=== PATIENT | male | born 1955 | race Caucasian/White ===

== ENCOUNTER 2018-01-07 11:34 | Observation (INO) | payer MEDICARE, OTHER ==
[2018-01-07] VITALS (7 sets, daily range): BP systolic 109–148; BP diastolic 56–83; PULSE 72–89; RESP 17–20; TEMP 97.8–98.8; O2SAT 94–98
[~2018-01-07] VITALS: Ht 182.9 cm; Wt 80.0 kg
[~2018-01-07 11:34] MED LIST: ASPI81 PO; BUPR150T3 PO; GLUC250C5 PO; LEXA20TA PO; LORA-392 PO; TAB-TAB PO; TAMS0.4C67 PO; VITA100017 PO
[2018-01-07] MEDS ORDERED: SODIUM CHLOR 0.9% 1000 ML INJ 1,000 ML IV ONE (12:15)
[2018-01-07] MEDS ORDERED: ONDANSETRON HCL 4 MG/2 ML VIAL IV PUSH ONE (12:15)
[2018-01-07] MEDS ORDERED: ASPIRIN 325 MG TAB PO ONE (12:15)
[2018-01-07] MEDS ORDERED: ONDANSETRON HCL 4 MG/2 ML VIAL ONE (12:15)
[2018-01-07 12:52] LABS: AUTOMATED NEUTROPHIL # 9.8 TH/MM3 (1.8-7.7); BASOPHIL % 0.3 % (0.0-2.0); EOSINOPHIL # 0.1 TH/MM3 (0-0.4); EOSINOPHIL % 0.7 % (0.0-4.0); HEMATOCRIT 42.5 % (39.0-51.0); HEMOGLOBIN 14.2 GM/DL (13.0-17.0); LYMPH % 8.5 % (9.0-44.0); MEAN CELL VOLUME 85.8 FL (80.0-100.0); MEAN CORPUSCULAR HEMOGLOBIN 28.7 PG (27.0-34.0); MEAN CORPUSCULAR HGB CONC 33.4 % (32.0-36.0); MEAN PLATELET VOLUME 9.2 FL (7.0-11.0); MONO % 8.5 % (0.0-8.0); PLATELET COUNT 224 TH/MM3 (150-450); RED BLOOD COUNT 4.96 MIL/MM3 (4.50-5.90); RED CELL DISTRIBUTION WIDTH 13.1 % (11.6-17.2); WHITE BLOOD COUNT 11.9 TH/MM3 (4.0-11.0)
--- NOTE | 2018-01-07 12:53 | RADRPT ---
EXAM DATE/TIME: 01/07/2018 12:32 [facility] COMPARISON: No previous studies available for comparison. INDICATIONS : Vertigo, weakness, heaviness in chest, felt hot all over MEDICAL HISTORY : Chronic obstructive pulmonary disease. heart murmur SURGICAL HISTORY : None. ENCOUNTER: Initial ACUITY: 1 day PAIN SCORE: 0/10 LOCATION: Bilateral chest FINDINGS: A single view of the chest demonstrates the lungs to be symmetrically aerated without evidence of mas s, infiltrate or effusion. The cardiomediastinal contours are unremarkable. Osseous structures are intact. CONCLUSION: 1. No acute cardiopulmonary findings identified. Nito Meza MD on January 07, 2018 at 12:50 Board Certified Radiologist. This report was verified electronically.
[2018-01-07] MEDS ORDERED: TAMS5CAP PO (12:57)
[2018-01-07] MEDS ORDERED: ASPI-516 CHEW (12:57)
[2018-01-07] MEDS ORDERED: LORA-392 PO (12:57)
[2018-01-07] MEDS ORDERED: LEXA20TA PO (12:57)
[2018-01-07] MEDS ORDERED: BUPR150CR PO (12:57)
--- NOTE | 2018-01-07 13:06 | RADRPT ---
EXAM DATE/TIME: 01/07/2018 12:53 [facility] COMPARISON: No previous studies available for comparison. INDICATIONS : Syncope today. RADIATION DOSE: 56.35 CTDIvol (mGy) MEDICAL HISTORY : None SURGICAL HISTORY : None. ENCOUNTER: Initial ACUITY: 1 day PAIN SCALE: 0/10 LOCATION: cranial TECHNIQUE: Multiple contiguous axial images were obtained of the head. Using automated exposure control and adj ustment of the mA and/or kV according to patient size, radiation dose was kept as low as reasonably a chievable to obtain optimal diagnostic quality images. DICOM format image data is available electro nically for review and comparison. FINDINGS: CEREBRUM: The ventricles are normal for age. No evidence of midline shift, mass lesion, hemorrhage or acute in farction. No extra-axial fluid collections are seen. POSTERIOR FOSSA: The cerebellum and brainstem are intact. The 4th ventricle is midline. The cerebellopontine angle i s unremarkable. EXTRACRANIAL: The visualized portion of the orbits is intact. SKULL: The calvaria is intact. No evidence of skull fracture. CONCLUSION: 1. No acute findings in the brain. Elfego Luz MD on January 07, 2018 at 13:04 Board Certified Radiologist. This report was verified electronically.
[2018-01-07 13:07] LABS: ALBUMIN 3.9 GM/DL (3.4-5.0); ALT (GPT) 22 U/L (12-78); AST (GOT) 16 U/L (15-37); BICARBONATE 28.5 MEQ/L (21.0-32.0); BLOOD UREA NITROGEN 10 MG/DL (7-18); CALCIUM 8.6 MG/DL (8.5-10.1); CHLORIDE 100 MEQ/L (98-107); CREATININE 1.02 MG/DL (0.60-1.30); GLOMERULAR FILTRATION RATE 74 ML/MIN (>89); GLUCOSE,RANDOM 101 MG/DL (74-106); SODIUM (NA) 135 MEQ/L (136-145)
[2018-01-07 13:17] LABS: ALKALINE PHOSPHATASE 40 U/L (45-117); DIRECT BILIRUBIN ADULT 0.1 MG/DL (0.0-0.2); TOTAL BILIRUBIN ADULT 0.7 MG/DL (0.2-1.0); TROPONIN I LESS THAN 0.02 NG/ML (0.02-0.05)
--- NOTE | 2018-01-07 13:41 | PD ---
HPI Chief Complaint: Chest Pain Time Seen by Provider: 12:02 Travel History International Travel<30 days: No Contact w/Intl Traveler<30days: No Traveled to known affect area: No History of Present Illness HPI 62-year-old male that presents to the ED for evaluation of chest pressure and dizziness. Per patient he was working on his garage for about a couple of hours with the findings on as well as keep hydrated and also started feeling like she was given a passout. There had this before. He states that he had some chest pressure but he wasn't sure if it was chest pain. He states that he has of shortness of breath as well. Per patient yesterday get admitted. He was given a passout. He never actually lost consciousness. His recommended that he comes here so he came here. He states that he drinks plenty of water. He denies any the hydration problems. He states that he still feels nauseous and was throwing up evaluated him. Positive abdominal pain. No diarrhea or bowel movement issues. No chest pain at this time but states that he did have the chest pressure. He denies any history of ACS or CVA. History of hypertension. No pain at this time. Per patient the pain was 3 out of 10. PFSH Past Medical History Anxiety: Yes Depression: Yes Past Surgical History Eye Surgery: Yes (BOTH EYES ) Other Surgery: Yes (NECK SURGERY) Social History Alcohol Use: Yes (BEER ONCE AND AWHILE- LAST DRANK 11/08/07) Tobacco Use: No Substance Use: No (Socially - 3-5 beers 1-2 times a week usually.) Allergies-Medications (Allergen,Severity, Reaction): Coded Allergies: No Known Allergies (Verified , 05/05/14) Reported Meds & Prescriptions Reported Meds & Active Scripts Active Reported Aspirin 81 Mg Chew 81 Mg CHEW DAILY Flomax (Tamsulosin HCl) 0.4 Mg Cap 0.4 Mg PO HS Ativan (Lorazepam) 0.5 Mg Tab 0.5 Mg PO Q6H PRN Wellbutrin SR 12 HR (Bupropion HCl) 150 Mg Tab 150 Mg PO Q12HR Lexapro (Escitalopram Oxalate) 20 Mg Tab 20 Mg PO DAILY Review of Systems Except as stated in HPI: all other systems reviewed are Neg Physical Exam Narrative GENERAL: SKIN: Warm and dry. HEAD: Atraumatic. Normocephalic. EYES: Pupils equal and round. No scleral icterus. No injection or drainage. ENT: No nasal bleeding or discharge. Mucous membranes pink and moist. Tongue is midline. No uvula deviation. NECK: Trachea midline. No JVD. CARDIOVASCULAR: Regular rate and rhythm. No murmurs, S3, S4. RESPIRATORY: No accessory muscle use. Clear to auscultation. Breath sounds equal bilaterally. GASTROINTESTINAL: Abdomen soft, non-tender, nondistended. Hepatic and splenic margins not palpable. MUSCULOSKELETAL: Extremities without clubbing, cyanosis, or edema. No obvious deformities. Full range of motion of the upper and lower extremities bilaterally. 2+ pulses bilaterally. NEUROLOGICAL: Awake and alert. No obvious cranial nerve deficits. Motor grossly within normal limits. Five out of 5 muscle strength in the arms and legs. Normal speech. PSYCHIATRIC: Appropriate mood and affect; insight and judgment normal. Data Data Last Documented VS Vital Signs Date Time Temp Pulse Resp B/P (MAP) Pulse Ox O2 Delivery O2 Flow Rate FiO2 01/07/18 13:28 78 18 123/83 (96) 83 18 146/80 (102) 84 18 140/83 (102) 01/07/18 12:21 98 Room Air 01/07/18 11:35 97.8 Orders Orders Electrocardiogram (01/07/18 11:46) Complete Blood Count With Diff (01/07/18 11:46) Ckmb (Isoenzyme) Profile (01/07/18 11:46) Troponin I (01/07/18 11:46) Chest, Single Ap (01/07/18 11:46) Iv Access Insert/Monitor (01/07/18 11:46) Ecg Monitoring (01/07/18 11:46) Oxygen Administration (01/07/18 11:46) Oximetry (01/07/18 11:46) Ct Brain W/O Iv Contrast(Rout) (01/07/18 ) Sodium Chlor 0.9% 1000 Ml Inj (Ns 1000 M (01/07/18 12:15) Aspirin (Aspirin) (01/07/18 12:15) Ondansetron Inj (Zofran Inj) (01/07/18 12:15) Ondansetron Inj (Zofran Inj) (01/07/18 12:15) Comprehensive Metabolic Panel (01/07/18 11:46) Direct Bilirubin (01/07/18 11:46) Thyroid Stimulating Hormone (01/07/18 11:46) Orthostatic Vital Signs (01/07/18 13:27) Admit Order (Ed Use Only) (01/07/18 13:34) Labs Laboratory Tests Test 01/07/18 12:22 White Blood Count 11.9 TH/MM3 Red Blood Count 4.96 MIL/MM3 Hemoglobin 14.2 GM/DL Hematocrit 42.5 % Mean Corpuscular Volume 85.8 FL Mean Corpuscular Hemoglobin 28.7 PG Mean Corpuscular Hemoglobin Concent 33.4 % Red Cell Distribution Width 13.1 % Platelet Count 224 TH/MM3 Mean Platelet Volume 9.2 FL Neutrophils (%) (Auto) 82.0 % Lymphocytes (%) (Auto) 8.5 % Monocytes (%) (Auto) 8.5 % Eosinophils (%) (Auto) 0.7 % Basophils (%) (Auto) 0.3 % Neutrophils # (Auto) 9.8 TH/MM3 Lymphocytes # (Auto) 1.0 TH/MM3 Monocytes # (Auto) 1.0 TH/MM3 Eosinophils # (Auto) 0.1 TH/MM3 Basophils # (Auto) 0.0 TH/MM3 CBC Comment DIFF FINAL Differential Comment Blood Urea Nitrogen 10 MG/DL Creatinine 1.02 MG/DL Random Glucose 101 MG/DL Total Protein 7.0 GM/DL Albumin 3.9 GM/DL Calcium Level 8.6 MG/DL Alkaline Phosphatase 40 U/L Aspartate Amino Transf (AST/SGOT) 16 U/L Alanine Aminotransferase (ALT/SGPT) 22 U/L Total Bilirubin 0.7 MG/DL Direct Bilirubin 0.1 MG/DL Sodium Level 135 MEQ/L Potassium Level 3.9 MEQ/L Chloride Level 100 MEQ/L Carbon Dioxide Level 28.5 MEQ/L Anion Gap 7 MEQ/L Estimat Glomerular Filtration Rate 74 ML/MIN Total Creatine Kinase 53 U/L Troponin I LESS THAN 0.02 NG/ML Thyroid Stimulating Hormone 3rd Gen 1.800 uIU/ML MDM Medical Decision Making Medical Screen Exam Complete: Yes Emergency Medical Condition: Yes Medical Record Reviewed: Yes Interpretation(s) EKG shows sinus rhythm with no sign of acute ischemia or arrhythmia read by me and attending. troponin and CKMB negative CBC & BMP Diagram 01/07/18 12:22 Total Protein 7.0, Albumin 3.9, Calcium Level 8.6, Alkaline Phosphatase 40 L, Aspartate Amino Transf (AST/SGOT) 16, Alanine Aminotransferase (ALT/SGPT) 22, Total Bilirubin 0.7, Direct Bilirubin 0.1 Last Impressions Chest X-Ray 01/07/18 1146 Signed Impressions: Service Date/Time: Sunday, January 07, 2018 12:32 - CONCLUSION: 1. No acute cardiopulmonary findings identified. Nito Meza MD Head CT 01/07/18 0000 Signed Impressions: Service Date/Time: Sunday, January 07, 2018 12:53 - CONCLUSION: 1. No acute findings in the brain. Elfego Luz MD TSH negative Differential Diagnosis Syncope versus presyncope versus cardiac syncope versus chest pain versus a typical chest pain versus ACS versus normal exam Narrative Course 62-year-old male that presents to the ED for evaluation of chest pain and syncope. Patient was properly examined and was found to have signs and symptoms consistent with appears to be possible cardiac syncope. Labs and imaging were ordered. Labs and imaging were negative. Patient still somewhat symptomatic. There is concerned as patient has never had a workup for this in the past. Condition is for admission for further eval. Case discussed with my attending Dr Power who agrees with plan. Dr. Meyer agreed to admission. Diagnosis Primary Impression: Syncope, near Admitting Information Admitting Physician Requests: Admit Lenard Mckeon Jan 07, 2018 13:41
--- NOTE | 2018-01-07 13:48 | PD ---
Physical Exam Date Seen by Provider: Jan 07, 2018 Time Seen by Provider: 13:40 Narrative I am seeing this patient with Brayden Mckeon PA-C. This is a 62-year-old male presents after having a near syncopal episode. Patient has no history of TIA or coronary artery disease. Patient has no previous history of syncopal episode. Patient states he felt funny like he was in the past. He states he had to brace himself and then nearly passed out. EKG shows no evidence of acute findings. Data Data Last Documented VS Vital Signs Date Time Temp Pulse Resp B/P (MAP) Pulse Ox O2 Delivery O2 Flow Rate FiO2 01/07/18 13:28 78 18 123/83 (96) 83 18 146/80 (102) 84 18 140/83 (102) 01/07/18 12:21 98 Room Air 01/07/18 11:35 97.8 Orders Orders Electrocardiogram (01/07/18 11:46) Complete Blood Count With Diff (01/07/18 11:46) Ckmb (Isoenzyme) Profile (01/07/18 11:46) Troponin I (01/07/18 11:46) Chest, Single Ap (01/07/18 11:46) Iv Access Insert/Monitor (01/07/18 11:46) Ecg Monitoring (01/07/18 11:46) Oxygen Administration (01/07/18 11:46) Oximetry (01/07/18 11:46) Ct Brain W/O Iv Contrast(Rout) (01/07/18 ) Sodium Chlor 0.9% 1000 Ml Inj (Ns 1000 M (01/07/18 12:15) Aspirin (Aspirin) (01/07/18 12:15) Ondansetron Inj (Zofran Inj) (01/07/18 12:15) Ondansetron Inj (Zofran Inj) (01/07/18 12:15) Comprehensive Metabolic Panel (01/07/18 11:46) Direct Bilirubin (01/07/18 11:46) Thyroid Stimulating Hormone (01/07/18 11:46) Orthostatic Vital Signs (01/07/18 13:27) Admit Order (Ed Use Only) (01/07/18 13:34) Labs Laboratory Tests Test 01/07/18 12:22 White Blood Count 11.9 TH/MM3 Red Blood Count 4.96 MIL/MM3 Hemoglobin 14.2 GM/DL Hematocrit 42.5 % Mean Corpuscular Volume 85.8 FL Mean Corpuscular Hemoglobin 28.7 PG Mean Corpuscular Hemoglobin Concent 33.4 % Red Cell Distribution Width 13.1 % Platelet Count 224 TH/MM3 Mean Platelet Volume 9.2 FL Neutrophils (%) (Auto) 82.0 % Lymphocytes (%) (Auto) 8.5 % Monocytes (%) (Auto) 8.5 % Eosinophils (%) (Auto) 0.7 % Basophils (%) (Auto) 0.3 % Neutrophils # (Auto) 9.8 TH/MM3 Lymphocytes # (Auto) 1.0 TH/MM3 Monocytes # (Auto) 1.0 TH/MM3 Eosinophils # (Auto) 0.1 TH/MM3 Basophils # (Auto) 0.0 TH/MM3 CBC Comment DIFF FINAL Differential Comment Blood Urea Nitrogen 10 MG/DL Creatinine 1.02 MG/DL Random Glucose 101 MG/DL Total Protein 7.0 GM/DL Albumin 3.9 GM/DL Calcium Level 8.6 MG/DL Alkaline Phosphatase 40 U/L Aspartate Amino Transf (AST/SGOT) 16 U/L Alanine Aminotransferase (ALT/SGPT) 22 U/L Total Bilirubin 0.7 MG/DL Direct Bilirubin 0.1 MG/DL Sodium Level 135 MEQ/L Potassium Level 3.9 MEQ/L Chloride Level 100 MEQ/L Carbon Dioxide Level 28.5 MEQ/L Anion Gap 7 MEQ/L Estimat Glomerular Filtration Rate 74 ML/MIN Total Creatine Kinase 53 U/L Troponin I LESS THAN 0.02 NG/ML Thyroid Stimulating Hormone 3rd Gen 1.800 uIU/ML [facility] Medical Record Reviewed: Yes Supervised Visit with JOEL: Yes Narrative Course 62-year-old male presents after having a near syncopal episode. Patient has a negative workup thus far. Given the patient's history and story, he will be admitted under observation. Case was discussed with Dr. Gamaliel Castrejon. Patient will be admitted for near syncope. Patient has still lightheaded symptoms despite the negative workup. Diagnosis Primary Impression: Syncope, near Admitting Information Admitting Physician Requests: Observation Danilo Power MD Jan 07, 2018 13:48
--- NOTE | 2018-01-07 14:34 | HHI.HP ---
HPI Service [facility] Hospitalists Primary Care Physician Eliezer Landon M.D. Admission Diagnosis cp/nausea presyncope Chief Complaint: cp/nausea Travel History International Travel<30 Days: No Contact w/Intl Traveler <30 Da: No Traveled to Known Affected Are: No History of Present Illness Pt is 62 yo man with depression/anxiety, bph, copd who presents with nausea, presnycope, chest pressure. Pt was washing his truck in the garage. he was drinking plenty of water. became very nauseated then ant chest pressure. was sob and clammy. sx's wouldn't stop and went inside to house with . She says he was very pale. after 30minutes she decided to bring him to ED. he was having alot of palpitations as well. [facility] in 2012 cal coronaries. No recent medication changes. Review of Systems Other cp sob diaphoresis dizzy pale nausea Past Family Social History Past Medical History copd. untreated sid bph depression/anxiety hernia repairs cervical surgery. disc herniation [facility] 2012 n[facility] coronaries Reported Medications Aspirin 81 Mg Chew 81 Mg CHEW DAILY Flomax (Tamsulosin HCl) 0.4 Mg Cap 0.4 Mg PO HS Ativan (Lorazepam) 0.5 Mg Tab 0.5 Mg PO Q6H PRN Wellbutrin SR 12 HR (Bupropion HCl) 150 Mg Tab 150 Mg daily Lexapro (Escitalopram Oxalate) 20 Mg Tab 20 Mg PO DAILY prn venolin. Allergies: Coded Allergies: No Known Allergies (Verified , 05/05/14) Family History nc Social History quit tobacco 20yrs ago 28yr tob use 1-2 ppd occasional etoh Physical Exam Vital Signs nad heart reg. ectopy lung cta abd s/nt ext no edema Vital Signs Date Time Temp Pulse Resp B/P (MAP) Pulse Ox O2 Delivery O2 Flow Rate FiO2 01/07/18 13:28 78 18 123/83 (96) 83 18 146/80 (102) 84 18 140/83 (102) 01/07/18 12:21 72 18 98 Room Air 01/07/18 12:10 97 Room Air 01/07/18 12:10 18 98 Room Air 01/07/18 11:35 97.8 84 18 148/79 (102) 98 Room Air Laboratory Laboratory Tests Test 01/07/18 12:22 White Blood Count 11.9 Red Blood Count 4.96 Hemoglobin 14.2 Hematocrit 42.5 Mean Corpuscular Volume 85.8 Mean Corpuscular Hemoglobin 28.7 Mean Corpuscular Hemoglobin Concent 33.4 Red Cell Distribution Width 13.1 Platelet Count 224 Mean Platelet Volume 9.2 Neutrophils (%) (Auto) 82.0 Lymphocytes (%) (Auto) 8.5 Monocytes (%) (Auto) 8.5 Eosinophils (%) (Auto) 0.7 Basophils (%) (Auto) 0.3 Neutrophils # (Auto) 9.8 Lymphocytes # (Auto) 1.0 Monocytes # (Auto) 1.0 Eosinophils # (Auto) 0.1 Basophils # (Auto) 0.0 CBC Comment DIFF FINAL Differential Comment Blood Urea Nitrogen 10 Creatinine 1.02 Random Glucose 101 Total Protein 7.0 Albumin 3.9 Calcium Level 8.6 Alkaline Phosphatase 40 Aspartate Amino Transf (AST/SGOT) 16 Alanine Aminotransferase (ALT/SGPT) 22 Total Bilirubin 0.7 Direct Bilirubin 0.1 Sodium Level 135 Potassium Level 3.9 Chloride Level 100 Carbon Dioxide Level 28.5 Anion Gap 7 Estimat Glomerular Filtration Rate 74 Total Creatine Kinase 53 Troponin I LESS THAN 0.02 Thyroid Stimulating Hormone 3rd Gen 1.800 Result Diagram: 01/07/18 1222 01/07/18 1222 Caprini VTE Risk Assessment Caprini VTE Risk Assessment: No/Low Risk (score <= 1) Caprini Risk Assessment Model Point Value = 1 Point Value = 2 Point Value = 3 Point Value = 5 Age 41-60 Minor surgery BMI > 25 kg/m2 Swollen legs Varicose veins or History of unexplained or recurrent spontaneous Oral contraceptives or hormone replacement Sepsis (< 1 month) Serious lung disease, including pneumonia (< 1 month) Abnormal pulmonary function Acute myocardial infarction Congestive heart failure (< 1 month) History of inflammatory bowel disease Medical patient at bed rest Age 61-74 Arthroscopic surgery Major open surgery (> 45 min) Laparoscopic surgery (> 45 min) Malignancy Confined to bed (> 72 hours) Immobilizing plaster cast Central venous access Age >= 75 History of VTE Family history of VTE Factor V Leiden Prothrombin [id number] Lupus anticoagulant Anticardiolipin antibodies Elevated serum homocysteine Heparin-induced thrombocytopenia Other congenital or acquired thrombophilia Stroke (< 1 month) Elective arthroplasty Hip, pelvis, or leg fracture Acute spinal cord injury (< 1 month) Prophylaxis Regimen Total Risk Factor Score Risk Level Prophylaxis Regimen 0-1 Low Early ambulation 2 Moderate Order ONE of the following: *Sequential Compression Device (SCD) *Heparin 5000 units SQ BID 3-4 Higher Order ONE of the following medications: *Heparin 5000 units SQ TID *Enoxaparin/Lovenox 40 mg SQ daily (WT < 150 kg, CrCl > 30 mL/min) *Enoxaparin/Lovenox 30 mg SQ daily (WT < 150 kg, CrCl > 10-29 mL/min) *Enoxaparin/Lovenox 30 mg SQ BID (WT < 150 kg, CrCl > 30 mL/min) AND/OR *Sequential Compression Device (SCD) 5 or more Highest Order ONE of the following medications: *Heparin 5000 units SQ TID (Preferred with Epidurals) *Enoxaparin/Lovenox 40 mg SQ daily (WT < 150 kg, CrCl > 30 mL/min) *Enoxaparin/Lovenox 30 mg SQ daily (WT < 150 kg, CrCl > 10-29 mL/min) *Enoxaparin/Lovenox 30 mg SQ BID (WT < 150 kg, CrCl > 30 mL/min) AND *Sequential Compression Device (SCD) Assessment and Plan Problem List: (1) Chest pain ICD Codes: R07.9 - Chest pain, unspecified Status: Acute Plan: 1. cp/sob/nausea/dizzy/diaphoretic/pale/palpitations after washing his vehicle today telemetry shows alot of ectopy/pvc's evaluation for cad and/or arrhythmia. 2. copd 3.depression/anxiety plan telemetry cardiac enzymes dvt prophylaxis lexiscan in AM. home meds (2) Anxiety and depression ICD Codes: F41.8 - Other specified anxiety disorders Status: Chronic (3) COPD (chronic obstructive pulmonary disease) ICD Codes: J44.9 - Chronic obstructive pulmonary disease, unspecified Status: Chronic Gamaliel Castrejon MD Jan 07, 2018 14:34
[2018-01-07] MEDS ORDERED: ACETAMINOPHEN 325 MG TAB PO PRN (14:45)
[2018-01-07] MEDS ORDERED: LORazepam 0.5 MG TAB PO PRN (14:45)
[2018-01-07] MEDS ORDERED: NITROGLYCERIN 0.4 MG SL 25 TABS/BTL SL PRN (14:45)
--- NOTE | 2018-01-07 16:34 | EKG ---
Date Performed: 01/07/2018 Time Performed: 12:10:50 PTAGE: 62 years EKG: Sinus rhythm NORMAL ECG PREVIOUS TRACING : 05/05/2014 11.13 No significant change from previous tracing noted. DOCTOR: David Colindres Interpretating Date/Time 01/07/2018 16:31:26
[2018-01-07 18:48] LABS: TROPONIN I LESS THAN 0.02 NG/ML (0.02-0.05)
[2018-01-07] MEDS ORDERED: LORazepam 0.5 MG TAB PO SCH (21:00)
[2018-01-07] MEDS ORDERED: TAMSULOSIN HCL 0.4 MG CAP PO SCH (21:00)
--- NOTE | 2018-01-07 23:06 | EKG ---
Date Performed: 01/07/2018 Time Performed: 18:22:47 PTAGE: 62 years EKG: Sinus rhythm WITH OCCASIONAL VENTRICULAR PREMATURE COMPLEXES BORDERLINE ECG NO PREVIOUS TRACING DOCTOR: David Colindres Interpretating Date/Time 01/07/2018 23:04:07
[2018-01-08 01:07] LABS: TROPONIN I LESS THAN 0.02 NG/ML (0.02-0.05)
[2018-01-08 03:37] VITALS: BP 106/69; PULSE 93; RESP 17; TEMP 98.8; O2SAT 94
[2018-01-08 08:10] VITALS: BP 118/70; PULSE 75; PULSE 78; RESP 20; TEMP 99; O2SAT 96
--- NOTE | 2018-01-08 08:55 | HHI.PR ---
Subjective Remarks Pt feeling well this morning. No issues overnight. He denies any chest pain, SOB, palpitations, dizziness or weakness He has been ambulating to the bathroom without difficulty Pt is planned for Lexiscan today. Objective Vitals Vital Signs Date Time Temp Pulse Resp B/P (MAP) Pulse Ox O2 Delivery O2 Flow Rate FiO2 01/08/18 08:10 99.0 78 20 118/70 (86) 96 01/08/18 03:37 98.8 93 17 106/69 (81) 94 01/07/18 23:19 98.1 72 17 109/56 (73) 94 01/07/18 19:26 98.8 75 18 123/64 (83) 94 01/07/18 16:50 97.9 88 20 128/68 (88) 96 01/07/18 16:23 89 01/07/18 13:28 78 18 123/83 (96) 83 18 146/80 (102) 84 18 140/83 (102) 01/07/18 12:21 72 18 98 Room Air 01/07/18 12:10 97 Room Air 01/07/18 12:10 18 98 Room Air 01/07/18 11:35 97.8 84 18 148/79 (102) 98 Room Air Result Diagram: 01/07/18 1222 01/07/18 1222 Other Results Laboratory Tests Test 01/07/18 12:22 01/07/18 18:00 01/08/18 00:10 White Blood Count 11.9 TH/MM3 Red Blood Count 4.96 MIL/MM3 Hemoglobin 14.2 GM/DL Hematocrit 42.5 % Mean Corpuscular Volume 85.8 FL Mean Corpuscular Hemoglobin 28.7 PG Mean Corpuscular Hemoglobin Concent 33.4 % Red Cell Distribution Width 13.1 % Platelet Count 224 TH/MM3 Mean Platelet Volume 9.2 FL Neutrophils (%) (Auto) 82.0 % Lymphocytes (%) (Auto) 8.5 % Monocytes (%) (Auto) 8.5 % Eosinophils (%) (Auto) 0.7 % Basophils (%) (Auto) 0.3 % Neutrophils # (Auto) 9.8 TH/MM3 Lymphocytes # (Auto) 1.0 TH/MM3 Monocytes # (Auto) 1.0 TH/MM3 Eosinophils # (Auto) 0.1 TH/MM3 Basophils # (Auto) 0.0 TH/MM3 CBC Comment DIFF FINAL Differential Comment Blood Urea Nitrogen 10 MG/DL Creatinine 1.02 MG/DL Random Glucose 101 MG/DL Total Protein 7.0 GM/DL Albumin 3.9 GM/DL Calcium Level 8.6 MG/DL Alkaline Phosphatase 40 U/L Aspartate Amino Transf (AST/SGOT) 16 U/L Alanine Aminotransferase (ALT/SGPT) 22 U/L Total Bilirubin 0.7 MG/DL Direct Bilirubin 0.1 MG/DL Sodium Level 135 MEQ/L Potassium Level 3.9 MEQ/L Chloride Level 100 MEQ/L Carbon Dioxide Level 28.5 MEQ/L Anion Gap 7 MEQ/L Estimat Glomerular Filtration Rate 74 ML/MIN Total Creatine Kinase 53 U/L 42 U/L 32 U/L Troponin I LESS THAN 0.02 NG/ML LESS THAN 0.02 NG/ML LESS THAN 0.02 NG/ML Thyroid Stimulating Hormone 3rd Gen 1.800 uIU/ML Imaging Last Impressions Myocardial Perfusion Scan Nuc Med 01/08/18 0600 Signed Impressions: Service Date/Time: Monday, January 08, 2018 12:48 - CONCLUSION: Unremarkable myocardial perfusion examination for ischemic changes. There is global hypokinesis of the left ventricle. The cardiac ejection fraction is diminished at 36%%.. RISK CATEGORY: Low Henrry Angela MD Chest X-Ray 01/07/18 1146 Signed Impressions: Service Date/Time: Sunday, January 07, 2018 12:32 - CONCLUSION: 1. No acute cardiopulmonary findings identified. Nito Meza MD Head CT 01/07/18 0000 Signed Impressions: Service Date/Time: Sunday, January 07, 2018 12:53 - CONCLUSION: 1. No acute findings in the brain. Elfego Luz MD Objective Remarks General: NAD, AAOx3 Chest: CTA Cardiac: Regular Abd: +BS, soft ND/NT Ext: No edema A/P Problem List: (1) Chest pain ICD Codes: R07.9 - Chest pain, unspecified Status: Acute Plan: CP/sob/nausea/dizzy/diaphoretic/pale/palpitations after washing his vehicle on - Telemetry shows a lot of ectopy/pvc's - Pt to be evaluated for cad and/or arrhythmia. - Serial CE were negative. - Lexiscan today - Holter - 2D echo COPD - Stable Depression/anxiety - Home meds continued ADDENDUM ([id number]): - Lexiscan (01/08/18) --> Unremarkable myocardial perfusion examination for ischemic changes. There is global hypokinesis of the left ventricle. The cardiac ejection fraction is diminished at 36%. - Discussed results with the pt and recommended that the pt have a 2D echo to confirm EF as a low EF can put him at risk for cardiac dysrhythmias. Pt did not want to stay at the hospital to have the 2D echo performed. - He had Holter monitor placed after the Lexiscan. - Patient is to followup with his PCP, Dr. Eliezer Landon, early next week. He is to call 01/10/18, to get 2D echocardiogram ordered and to be performed early next week. - Patient will complete Holter Monitor over the weekend and return to [place] tomorrow. He will followup with PCP for results. - Pt instructed to avoid any strenuous activity. Also recommended that should the pt develop any chest pain, shortness of breath, dizziness, weakness, palpitations, nausea/vomiting, feeling faint/passing out he is to return to the ER for further evaluation. (2) Anxiety and depression ICD Codes: F41.8 - Other specified anxiety disorders Status: Chronic (3) COPD (chronic obstructive pulmonary disease) ICD Codes: J44.9 - Chronic obstructive pulmonary disease, unspecified Status: Chronic Assessment and Plan Patient examined. Assessment and plan formulated with Irasema Tran PA-C. I agree with the above. denies any symptoms overnight. has been ambulating. eager for d/c home. pvc's on tele overnight. no cp or sob. serjio pending. if negative will d/c home with holter and close pcp f/u. Pt very eager for dc. Problem Qualifiers (1) Chest pain: Qualified Codes: R07.9 - Chest pain, unspecified Irasema Tran Jan 08, 2018 08:55 Gamaliel Castrejon MD Jan 08, 2018 13:11
[2018-01-08] MEDS ORDERED: buPROPion HCL 150 MG SUSTAINED RELEASE TAB PO SCH (09:00)
[2018-01-08] MEDS ORDERED: ESCITALOPRAM OXALATE 20 MG TAB PO SCH (09:00)
[2018-01-08] MEDS ORDERED: ASPIRIN 81 MG CHEW TAB CHEW SCH (09:00)
[2018-01-08] MEDS ORDERED: INFLUENZA VIRUS VACCINE (QUADRIVALENT) 0.5 ML SYR IM ONE (10:00)
[2018-01-08] MEDS ORDERED: PNEUMOCOCCAL POLYVALENT INJ 25 MCG/0.5 ML SYR IM ONE (10:00)
[2018-01-08] MEDS ORDERED: DEXT 5%-NACL 0.9% 1000 ML INJ 1,000 ML IV SCH (11:30)
[2018-01-08 12:07] VITALS: BP 112/63; PULSE 68; RESP 20; TEMP 98.9; O2SAT 98
[2018-01-08] MEDS ORDERED: REGADENOSON INJ 0.4 MG/5 ML SYR ONE (12:51)
--- NOTE | 2018-01-08 12:52 | EKG ---
Date Performed: 01/08/2018 Time Performed: 00:18:18 PTAGE: 62 years EKG: Sinus rhythm WITH OCCASIONAL VENTRICULAR PREMATURE COMPLEXES BORDERLINE ECG PREVIOUS TRACING : 01/07/2018 18.22 No significant change from previous tracing noted. DOCTOR: David Colindres Interpretating Date/Time 01/08/2018 12:49:56
--- NOTE | 2018-01-08 15:03 | RADRPT ---
EXAM DATE/TIME: 01/08/2018 12:48 [facility] COMPARISON: No previous studies available for comparison. INDICATIONS : Chest pain. Angina. DOSE: 25.4 mCi Tc99m Myoview at stress. 8.8 mCi Tc99m Myoview at rest. 0.4 mg Lexiscan STRESS SYMPTOMS: Shortness of breath. EJECTION FRACTION: 36% MEDICAL HISTORY : Hypertension. SURGICAL HISTORY : Right knee, left shoulder, and neck surgery. ENCOUNTER: Initial ACUITY: 1 day PAIN SCALE: 3/10 LOCATION: chest TECHNIQUE: The patient underwent pharmacologic stress with infusion of prescribed dose. Continuous ECG tracing was monitored during stress. Gated SPECT imaging was performed after stress and conventional SPECT i maging was performed at rest. The examination was performed on a SPECT/CT scanner, both attenuation and non-corrected datasets were reviewed. FINDINGS: DISTRIBUTION: The maximum perfused segment at stress is in the anterior wall. PERFUSION STUDY: The pattern of perfusion at stress is within normal limits. GATED STUDY: There is intact wall motion with some global hypokinesis.. CONCLUSION: Unremarkable myocardial perfusion examination for ischemic changes. There is global hypokinesis of th e left ventricle. The cardiac ejection fraction is diminished at 36%.. RISK CATEGORY: Low Henrry Angela MD on January 08, 2018 at 15:00 Board Certified Radiologist. This report was verified electronically.
--- NOTE | 2018-01-08 15:47 | HHI.DCPOC ---
Discharge Care Plan Diagnosis: (1) Syncope, near (2) Chest pain (3) Anxiety and depression (4) COPD (chronic obstructive pulmonary disease) Goals to Promote Your Health - Patient is to followup with his PCP, Dr. Eliezer Landon, early next week. He is to call 01/10/18, to get 2D echocardiogram ordered and to be performed early next week. - Patient will complete Holter Monitor over the weekend and return to [place] tomorrow. Followup with PCP for results. - Avoid any strenuous activity. - Should you develop any chest pain, shortness of breath, dizziness, weakness, palpitations, nausea/vomiting, feeling faint/passing out return to the ER for further evaluation Directions to Meet Your Goals Take your medications as prescribed Follow your dietary instruction Follow activity as directed Keep your appointments as scheduled Take your immunizations and boosters as scheduled If your symptoms worsen call your PCP, if no PCP go to Urgent Care Center or Emergency Room Smoking is Dangerous to Your Health. Avoid second hand smoke Call the 24-hour hour crisis hotline for domestic abuse at [facility] Jan 08, 2018 15:47
--- NOTE | 2018-01-10 14:42 | HM ---
Date Performed: 01/08/2018 Time Performed: 15:25:00 HOOKUP DATE: 01/08/18 03:25:00 PM Sat ANALYSIS START TIME: 01/08/2018 3:30:00 PM ANALYSIS END TIME: 01/09/2018 3:32:18 PM PATIENT AGE: 62 PATIENT HEIGHT PATIENT WEIGHT DRUG LIST PATIENT DIAGNOSIS: syncope TEST NARRATIVE: The patient's average heart rate was 89 BPM. Heart rates greater than 120 B PM were noted 2% of the time. No episodes of bradycardia were noted. No pauses exceeding 2.0 sec onds were noted. 90509 ventricular ectopics, which represented 13% of the total beat count, were noted. The highest ventricular ectopic frequency occurred from 09:00 AM to 10:00 AM Sun. During thi s time 1989 VE(s) occurred. [place] [address] isolated beat(s), as 2382 co uplet(s) and as 235 run(s). Some of the ventricular beats occurred in bigeminal cycles. 4 suprav entricular ectopics, which represented < 1% of the total beat count, were noted. The highest suprave ntricular ectopic frequency occurred from 01:00 PM to 02:00 PM Sun. During this time 3 SVE(s) occurr ed. No episodes of ST depression (defined as -1.0 mm or more) were noted in channel 1. No episod es of ST depression (defined as -1.0 mm or more) were noted in channel 2. No episodes of ST depressi on (defined as -1.0 mm or more) were noted in channel 3. NO DIARY ENTRIES TEST INTERPRETATION: Agree with the narrative. Frequent ventricular ectopies are noted including multiple runs, some of which are multifocal. Clinical correlation is strongly recommended. Signed by : Selvin Galeano
== END 2018-01-08 18:28 | disposition home or self-care (01) ==
LOC: NEPE 11:34 → NEDA 13:35 → NEPGCP 15:12
PROVIDERS: ADMIT Hospitalist; ATTEND Hospitalist
DX: R07.9 Chest pain, unspecified (principal); R55 Syncope and collapse; F41.9 Anxiety disorder, unspecified; F32.9 Major depressive disorder, single episode, unspecified; J44.9 Chronic obstructive pulmonary disease, unspecified; I10 Essential (primary) hypertension; R94.31 Abnormal electrocardiogram [ECG] [EKG]; G47.33 Obstructive sleep apnea (adult) (pediatric); N40.0 Benign prostatic hyperplasia without lower urinary tract symptoms; Z87.891 Personal history of nicotine dependence; Z23 Encounter for immunization
CPT/HCPCS: 70450; 71045; 78452; 80053; 82248; 82550; 84443; 84484; 85025; 90732; 93005; 93017; 93225; 93226; 96361; 96374; 99285; A9502; G0378; J2405; J2785; J7030; J7042